=== PATIENT | male | born 1960 | race Caucasian/White ===

== ENCOUNTER 2021-09-09 14:21 | Emergency (ER) | payer MEDICARE, OTHER ==
[2021-09-09 14:46] VITALS: RESP 18; TEMP 97.5
--- NOTE | 2021-09-09 15:21 | ED ---
Abdominal Pain HPI - General Chief Complaint: Abdominal Pain Stated Complaint: High Blood Pressure Time Seen by Provider: 09/09/21 14:56 Source: patient Mode of arrival: ambulatory - History of Present Illness Initial Comments: Patient is a 60-year-old male presenting with chief complaint of abdominal bloating. Today the patient presented to urgent care for abdominal bloating and pain that he has been experiencing for the last 2 months, at urgent care his blood pressure reading was high and they advised him to present to the ER for further management. Patient states that his abdominal pain is diffuse and feels like a tightening of the abdomen. Patient has been on levofloxacin and Protonix for his symptoms which has not been helpful. He denies diarrhea or constipation, he states he has one small formed bowel movement every day. Patient admits to smoking one pack of cigarettes a day. Patient denies history of hypertension, diabetes, heart failure, peripheral vascular disease, states that he does not regularly go to the doctor. He denies change of pain with ingestion of food or drink or position or exertion. No nausea, vomiting. No chest pain or shortness of breath. No fever or chills. No palpitations, weakness, headache, vision or hearing changes, numbness, tingling, hemoptysis, hematemesis, hematochezia, melena, hematuria, dysuria, urgency, frequency, flank pain, back pain or pain between the shoulder blades. - Related Data Home Medications Medication Instructions Recorded Confirmed Pantoprazole Sodium [Protonix] 40 mg PO DAILY 09/09/21 09/09/21 Allergies Allergy/AdvReac Type Severity Reaction Status Date / Time No Known Allergies Allergy Verified 09/09/21 15:40 Review of Systems ROS Statement: Those systems with pertinent positive or pertinent negative responses have been documented in the HPI. ROS Other: All systems not noted in ROS Statement are negative. Past Medical History Past Medical History: Hypertension History of Any Multi-Drug Resistant Organisms: None Reported Past Surgical History: Orthopedic Surgery Additional Past Surgical History / Comment(s): lung. wrist, leg Past Psychological History: No Psychological Hx Reported Smoking Status: Current every day smoker Past Alcohol Use History: Occasional Past Drug Use History: None Reported General Exam Limitations: no limitations General appearance: alert, in no apparent distress Head exam: Present: atraumatic, normocephalic, normal inspection Eye exam: Present: normal appearance. Absent: scleral icterus ENT exam: Present: normal exam, mucous membranes moist Neck exam: Present: normal inspection Respiratory exam: Present: normal lung sounds bilaterally. Absent: respiratory distress, wheezes, rales, rhonchi, stridor Cardiovascular Exam: Present: regular rate, normal rhythm, normal heart sounds. Absent: systolic murmur, diastolic murmur, rubs, gallop, clicks GI/Abdominal exam: Present: soft, distended, hyperactive bowel sounds. Absent: tenderness, guarding, rebound, rigid Extremities exam: Present: normal inspection Back exam: Present: normal inspection Neurological exam: Present: alert, oriented X3, CN II-XII intact Psychiatric exam: Present: normal affect, normal mood Skin exam: Present: warm, dry, intact, normal color. Absent: rash Course Vital Signs 09/09/21 09/09/21 09/09/21 14:39 16:06 17:12 Temperature 97.5 F L Pulse Rate 90 87 93 Respiratory 18 18 18 Rate Blood Pressure 219/133 163/102 168/99 O2 Sat by Pulse 99 98 99 Oximetry Medical Decision Making - Medical Decision Making Patient is a 60-year-old male presenting with chief complaint of abdominal distention. Patient states that for the last 2 months he has been having abdominal bloating and distention. Patient denies constipation, nausea, vomiting. On presentation he is hypertensive at 219/133. On exam abdomen is distended, is not rigid or tender. Normal bowel sounds in all 4 quadrants. Lab work and UA is unremarkable. EKG shows sinus rhythm with rate of 91 and no acute changes. Acute abdominal series is remarkable for fecal loading of the colon and nodule of the left upper lung. BP recheck it has been gradually coming down, most recent reading is 168/99. I educated the patient on the findings. Advised treatment with MiraLAX and Metamucil. Follow-up with primary care regarding high blood pressure, pulmonary nodule, and abdominal bloating. Report back to ER if any worsening symptoms. Educated the patient on return parameters and answered all questions. Patient conveyed verbal understanding and agreed to the plan. I discussed this case with my attending Dr. Max. - Lab Data Result diagrams: 09/09/21 15:17 09/09/21 15:17 Lab Results 09/09/21 09/09/21 09/09/21 Range/Units 15:17 15:17 15:17 WBC 9.9 (3.8-10.6) k/uL RBC 5.28 (4.30-5.90) m/uL Hgb 17.7 H (13.0-17.5) gm/dL Hct 53.4 H (39.0-53.0) % MCV 101.2 H (80.0-100.0) fL MCH 33.6 (25.0-35.0) pg MCHC 33.2 (31.0-37.0) g/dL RDW 11.6 (11.5-15.5) % Plt Count 193 (150-450) k/uL MPV 8.2 Neutrophils % 71 % Lymphocytes % 19 % Monocytes % 6 % Eosinophils % 1 % Basophils % 1 % Neutrophils # 7.0 (1.3-7.7) k/uL Lymphocytes # 1.9 (1.0-4.8) k/uL Monocytes # 0.6 (0-1.0) k/uL Eosinophils # 0.1 (0-0.7) k/uL Basophils # 0.1 (0-0.2) k/uL PT 10.9 (9.0-12.0) sec INR 1.0 (<1.2) APTT 27.0 (22.0-30.0) sec Sodium (137-145) mmol/L Potassium (3.5-5.1) mmol/L Chloride (98-107) mmol/L Carbon Dioxide (22-30) mmol/L Anion Gap mmol/L BUN (9-20) mg/dL Creatinine (0.66-1.25) mg/dL Est GFR (CKD-EPI)AfAm (>60 ml/min/1.73 sqM) Est GFR (CKD-EPI)NonAf (>60 ml/min/1.73 sqM) Glucose (74-99) mg/dL Plasma Lactic Acid Gregorio (0.7-2.0) mmol/L Calcium (8.4-10.2) mg/dL Total Bilirubin (0.2-1.3) mg/dL AST (17-59) U/L ALT (4-49) U/L Alkaline Phosphatase (38-126) U/L Troponin I (0.000-0.034) ng/mL Total Protein (6.3-8.2) g/dL Albumin (3.5-5.0) g/dL Amylase (30-110) U/L Lipase (23-300) U/L Urine Color Colorless Urine Appearance Clear (Clear) Urine pH 6.0 (5.0-8.0) Ur Specific [place] 1.002 (1.001-1.035) Urine Protein Negative (Negative) Urine Glucose (UA) Negative (Negative) Urine Ketones Negative (Negative) Urine Blood Negative (Negative) Urine Nitrite Negative (Negative) Urine Bilirubin Negative (Negative) Urine Urobilinogen <2.0 (<2.0) mg/dL Ur Leukocyte Esterase Negative (Negative) 09/09/21 09/09/21 09/09/21 Range/Units 15:17 15:17 15:17 WBC (3.8-10.6) k/uL RBC (4.30-5.90) m/uL Hgb (13.0-17.5) gm/dL Hct (39.0-53.0) % MCV (80.0-100.0) fL MCH (25.0-35.0) pg MCHC (31.0-37.0) g/dL RDW (11.5-15.5) % Plt Count (150-450) k/uL MPV Neutrophils % % Lymphocytes % % Monocytes % % Eosinophils % % Basophils % % Neutrophils # (1.3-7.7) k/uL Lymphocytes # (1.0-4.8) k/uL Monocytes # (0-1.0) k/uL Eosinophils # (0-0.7) k/uL Basophils # (0-0.2) k/uL PT (9.0-12.0) sec INR (<1.2) APTT (22.0-30.0) sec Sodium 134 L (137-145) mmol/L Potassium 3.9 (3.5-5.1) mmol/L Chloride 97 L (98-107) mmol/L Carbon Dioxide 22 (22-30) mmol/L Anion Gap 15 mmol/L BUN 4 L (9-20) mg/dL Creatinine 0.50 L (0.66-1.25) mg/dL Est GFR (CKD-EPI)AfAm >90 (>60 ml/min/1.73 sqM) Est GFR (CKD-EPI)NonAf >90 (>60 ml/min/1.73 sqM) Glucose 93 (74-99) mg/dL Plasma Lactic Acid Gregorio 1.8 (0.7-2.0) mmol/L Calcium 9.0 (8.4-10.2) mg/dL Total Bilirubin 0.6 (0.2-1.3) mg/dL AST 57 (17-59) U/L ALT 59 H (4-49) U/L Alkaline Phosphatase 82 (38-126) U/L Troponin I <0.012 (0.000-0.034) ng/mL Total Protein 9.2 H (6.3-8.2) g/dL Albumin 5.0 (3.5-5.0) g/dL Amylase 88 (30-110) U/L Lipase 69 (23-300) U/L Urine Color Urine Appearance (Clear) Urine pH (5.0-8.0) Ur Specific [place] (1.001-1.035) Urine Protein (Negative) Urine Glucose (UA) (Negative) Urine Ketones (Negative) Urine Blood (Negative) Urine Nitrite (Negative) Urine Bilirubin (Negative) Urine Urobilinogen (<2.0) mg/dL Ur Leukocyte Esterase (Negative) - EKG Data EKG shows normal: sinus rhythm, axis, intervals, QRS complexes Rate: normal Disposition Clinical Impression: Constipation Disposition: HOME SELF-CARE Condition: Good Instructions (If sedation given, give patient instructions): Constipation (DC), High Fiber Diet (ED) Additional Instructions: Follow-up with your primary care provider regarding high blood pressure and nodule on left lung seen on x-ray today in 1-2 days. You may take over the counter MiraLAX and Metamucil to help promote healthy bowel movements. Stay well hydrated and eat a diet high in fiber. Report back to ER with any worsening symptoms, including but not limited to vomiting, chest pain, shortness of breath, vision changes, intractable headache. Is patient prescribed a controlled substance at d/c from ED?: No Referrals: Jeancarlos Garcia MD [Primary Care Provider] - 1-2 days Time of Disposition: 16:57
[2021-09-09 15:32] LABS: Basophils # (A) 0.1 k/uL (0-0.2); Basophils % (A) 1 %; Eosinophils # (A) 0.1 k/uL (0-0.7); Eosinophils % (A) 1 %; HCT 53.4 % (39.0-53.0); HGB 17.7 gm/dL (13.0-17.5); Lymphocytes # (A) 1.9 k/uL (1.0-4.8); Lymphocytes % (A) 19 %; MCH 33.6 pg (25.0-35.0); MCHC 33.2 g/dL (31.0-37.0); MCV 101.2 fL (80.0-100.0); Mean Platelet Volume 8.2; Monocytes # (A) 0.6 k/uL (0-1.0); Monocytes % (A) 6 %; Neutrophils % (A) 71 %; Platelet Count 193 k/uL (150-450); RBC 5.28 m/uL (4.30-5.90); RDW 11.6 % (11.5-15.5); WBC 9.9 k/uL (3.8-10.6)
[2021-09-09 15:41] LABS: ALT 59 U/L (4-49); AST 57 U/L (17-59); African American GFR (CKD) >90 (>60 ml/min/1.73 sqM); Alkaline Phosphatase 82 U/L (38-126); Amylase 88 U/L (30-110); Anion Gap 15 mmol/L; Blood Urea Nitrogen 4 mg/dL (9-20); Carbon Dioxide 22 mmol/L (22-30); Chloride 97 mmol/L (98-107); Glucose 93 mg/dL (74-99); Lipase 69 U/L (23-300); Non-African American GFR(CKD) >90 (>60 ml/min/1.73 sqM); Potassium 3.9 mmol/L (3.5-5.1); Sodium 134 mmol/L (137-145); Total Bilirubin 0.6 mg/dL (0.2-1.3); Total Protein 9.2 g/dL (6.3-8.2)
[2021-09-09] MEDS ORDERED: SODIUM CHLORIDE 0.9% 1,000 ML IV ONE (15:49)
[2021-09-09 15:55] LABS: Prothrombin Time 10.9 sec (9.0-12.0)
[2021-09-09 15:58] LABS: Appearance,Urine Clear (Clear); Bilirubin,Urine Negative (Negative); Blood,Urine Negative (Negative); Color,Urine Colorless; Glucose,Urine (UA) Negative (Negative); Ketones,Urine Negative (Negative); Leukocyte Esterase,Urine Negative (Negative); Nitrite,Urine Negative (Negative); Protein,Urine Negative (Negative); Specific Gravity,Urine 1.002 (1.001-1.035); Urobilinogen,Urine <2.0 mg/dL (<2.0)
--- NOTE | 2021-09-09 16:00 | XR ---
EXAMINATION TYPE: XR abdomen acute w cx DATE OF EXAM: 09/09/2021 COMPARISON: X-ray dated 08/30/2009 HISTORY: Abdominal pain TECHNIQUE: Supine, upright, and left side down lateral decubitus views of the abdomen are obtained. FINDINGS: 10 mm nodular opacity superimposed on the left upper lung zone which could represent a tiny nodule, n ot appreciated previously. Follow-up x-ray versus elective CT assessment can be considered. Suspected COPD changes. Unremarkable lungs otherwise. No sizable pleural effusion or definite pneumothorax. No cardiomegaly. Chronic fracture of the right clavicle. No free air under the diaphragm. No multiple air-fluid levels or signs of acute high-grade small dean l obstruction. Moderate fecal loading of the colon. Arterial atherosclerotic calcifications. IMPRESSION: 1. No acute pulmonary or abdominal abnormality identified. 2. Suspected moderate fecal loading of the colon. 3. Questionable nodule superimposed on the left upper lung zone as described above, for follow-up x-r ay in 6 weeks versus further elective CT assessment. Other findings as described above.
[2021-09-09 17:14] VITALS: BP 168/99; PULSE 93
== END 2021-09-09 17:14 | disposition home or self-care (01) ==
LOC: EC 14:21
DX: K59.00 Constipation, unspecified (principal); F17.210 Nicotine dependence, cigarettes, uncomplicated; I10 Essential (primary) hypertension
CPT/HCPCS: 36415; 74022; 80053; 81003; 82150; 83605; 83690; 84484; 85025; 85610; 85730; 93005; 96360; 99284

== ENCOUNTER 2022-02-12 07:48 | Emergency (ER) | payer MEDICARE, OTHER ==
[2022-02-12 07:59] VITALS: BP 168/91; PULSE 92; RESP 16; TEMP 97.5
--- NOTE | 2022-02-12 08:18 | ED ---
General Adult HPI - General Chief complaint: Abdominal Pain Stated complaint: Abd pain Time Seen by Provider: 02/12/22 08:00 Source: patient, RN notes reviewed, old records reviewed Mode of arrival: ambulatory Limitations: no limitations - History of Present Illness Initial comments: This is a 61-year-old male who presents emergency Department complaining of flank pain intermittently over the last 6 months. Patient states about 5 months ago with a colonoscopy and they did not find a cause for the pain. Patient states for a while is gone away but it is back again for the last month and he said mostly on the left side. Patient denies any dysuria hematuria urinary frequency. Patient denies any fever chills or cough. Patient denies any nausea vomiting or diarrhea. Patient states chest pain or difficulty breathing. Patient states there is no point specific area of tenderness. Patient denies any swelling or rashes. Patient denies any weight gain or weight loss. - Related Data Home Medications Medication Instructions Recorded Confirmed No Known Home Medications 02/12/22 02/12/22 Allergies Allergy/AdvReac Type Severity Reaction Status Date / Time No Known Allergies Allergy Verified 02/12/22 10:37 Review of Systems ROS Statement: Those systems with pertinent positive or pertinent negative responses have been documented in the HPI. ROS Other: All systems not noted in ROS Statement are negative. Past Medical History Past Medical History: Hypertension History of Any Multi-Drug Resistant Organisms: None Reported Past Surgical History: Orthopedic Surgery Additional Past Surgical History / Comment(s): lung. wrist, leg Past Psychological History: No Psychological Hx Reported Smoking Status: Current every day smoker Past Alcohol Use History: Occasional Past Drug Use History: None Reported General Exam - General Exam Comments Initial Comments: GENERAL: Patient is well-developed and well-nourished. Patient is nontoxic and well- hydrated and is in mild distress. ENT: Neck is soft and supple. No significant lymphadenopathy is noted. Oropharynx is clear. Moist mucous membranes. Neck has full range of motion without eliciting any pain. EYES: The sclera were anicteric and conjunctiva were pink and moist. Extraocular movements were intact and pupils were equal round and reactive to light. Eyel ids were unremarkable. PULMONARY: Unlabored respirations. Good breath sounds bilaterally. No audible rales rhonchi or wheezing was noted. CARDIOVASCULAR: There is a regular rate and rhythm without any murmurs gallops or rubs. ABDOMEN: Soft and nontender with normal bowel sounds. No specific area of tenderness on palpation at all. SKIN: Skin is clear with no lesions or rashes and otherwise unremarkable. NEUROLOGIC: Patient is alert and oriented x3. Cranial nerves II through XII are grossly intact. Motor and sensory are also intact. Normal speech, volume and content. Symmetrical smile. MUSCULOSKELETAL: Normal extremities with adequate strength and full range of motion. LYMPHATICS: No significant lymphadenopathy is noted PSYCHIATRIC: Normal psychiatric evaluation. Limitations: no limitations Course Vital Signs 02/12/22 07:56 Temperature 97.5 F L Pulse Rate 92 Respiratory 16 Rate Blood Pressure 168/91 O2 Sat by Pulse 100 Oximetry Medical Decision Making - Medical Decision Making CT shows stenosis of the SMA. I spoke with he wanted the patient admitted and have a vascular consult. I went and spoke with the patient he stated he would stay and I ordered him a nicotine patch and a little Ativan because he is very anxious. When I left the room shortly thereafter patient put his clothes on and told nursing he wanted to leave AMA. Patient understood the risks and stated he would follow-up on his own. - Lab Data Result diagrams: 02/12/22 08:17 02/12/22 08:17 Lab Results 02/12/22 02/12/22 02/12/22 Range/Units 08:17 08:17 08:17 WBC 8.9 (3.8-10.6) k/uL RBC 4.79 (4.30-5.90) m/uL Hgb 15.9 (13.0-17.5) gm/dL Hct 48.8 (39.0-53.0) % MCV 101.8 H (80.0-100.0) fL MCH 33.1 (25.0-35.0) pg MCHC 32.5 (31.0-37.0) g/dL RDW 11.7 (11.5-15.5) % Plt Count 213 (150-450) k/uL MPV 7.8 Neutrophils % 58 % Lymphocytes % 29 % Monocytes % 7 % Eosinophils % 2 % Basophils % 1 % Neutrophils # 5.2 (1.3-7.7) k/uL Lymphocytes # 2.6 (1.0-4.8) k/uL Monocytes # 0.6 (0-1.0) k/uL Eosinophils # 0.2 (0-0.7) k/uL Basophils # 0.1 (0-0.2) k/uL Sodium 135 L (137-145) mmol/L Potassium 4.5 (3.5-5.1) mmol/L Chloride 99 (98-107) mmol/L Carbon Dioxide 24 (22-30) mmol/L Anion Gap 12 mmol/L BUN 7 L (9-20) mg/dL Creatinine 0.51 L (0.66-1.25) mg/dL Est GFR (CKD-EPI)AfAm >90 (>60 ml/min/1.73 sqM) Est GFR (CKD-EPI)NonAf >90 (>60 ml/min/1.73 sqM) Glucose 88 (74-99) mg/dL Plasma Lactic Acid Gregorio 1.5 (0.7-2.0) mmol/L Calcium 9.3 (8.4-10.2) mg/dL Total Bilirubin 0.8 (0.2-1.3) mg/dL AST 47 (17-59) U/L ALT 50 H (4-49) U/L Alkaline Phosphatase 65 (38-126) U/L Total Protein 8.1 (6.3-8.2) g/dL Albumin 4.9 (3.5-5.0) g/dL Amylase 81 (30-110) U/L Lipase 62 (23-300) U/L Urine Color Urine Appearance (Clear) Urine pH (5.0-8.0) Ur Specific [place] (1.001-1.035) Urine Protein (Negative) Urine Glucose (UA) (Negative) Urine Ketones (Negative) Urine Blood (Negative) Urine Nitrite (Negative) Urine Bilirubin (Negative) Urine Urobilinogen (<2.0) mg/dL Ur Leukocyte Esterase (Negative) 02/12/22 Range/Units 08:17 WBC (3.8-10.6) k/uL RBC (4.30-5.90) m/uL Hgb (13.0-17.5) gm/dL Hct (39.0-53.0) % MCV (80.0-100.0) fL MCH (25.0-35.0) pg MCHC (31.0-37.0) g/dL RDW (11.5-15.5) % Plt Count (150-450) k/uL MPV Neutrophils % % Lymphocytes % % Monocytes % % Eosinophils % % Basophils % % Neutrophils # (1.3-7.7) k/uL Lymphocytes # (1.0-4.8) k/uL Monocytes # (0-1.0) k/uL Eosinophils # (0-0.7) k/uL Basophils # (0-0.2) k/uL Sodium (137-145) mmol/L Potassium (3.5-5.1) mmol/L Chloride (98-107) mmol/L Carbon Dioxide (22-30) mmol/L Anion Gap mmol/L BUN (9-20) mg/dL Creatinine (0.66-1.25) mg/dL Est GFR (CKD-EPI)AfAm (>60 ml/min/1.73 sqM) Est GFR (CKD-EPI)NonAf (>60 ml/min/1.73 sqM) Glucose (74-99) mg/dL Plasma Lactic Acid Gregorio (0.7-2.0) mmol/L Calcium (8.4-10.2) mg/dL Total Bilirubin (0.2-1.3) mg/dL AST (17-59) U/L ALT (4-49) U/L Alkaline Phosphatase (38-126) U/L Total Protein (6.3-8.2) g/dL Albumin (3.5-5.0) g/dL Amylase (30-110) U/L Lipase (23-300) U/L Urine Color Light Yellow Urine Appearance Clear (Clear) Urine pH 7.0 (5.0-8.0) Ur Specific [place] 1.003 (1.001-1.035) Urine Protein Negative (Negative) Urine Glucose (UA) Negative (Negative) Urine Ketones Negative (Negative) Urine Blood Negative (Negative) Urine Nitrite Negative (Negative) Urine Bilirubin Negative (Negative) Urine Urobilinogen <2.0 (<2.0) mg/dL Ur Leukocyte Esterase Negative (Negative) Disposition Clinical Impression: Abdominal pain, Superior mesenteric artery stenosis Disposition: Left Against Medical Advice Instructions (If sedation given, give patient instructions): Abdominal Pain (ED) Referrals: Jeancarlos Garcia MD [Primary Care Provider] - 1-2 days Time of Disposition: 11:09
[2022-02-12 08:42] LABS: Appearance,Urine Clear (Clear); Basophils # (A) 0.1 k/uL (0-0.2); Basophils % (A) 1 %; Bilirubin,Urine Negative (Negative); Blood,Urine Negative (Negative); Color,Urine Light Yellow; Eosinophils # (A) 0.2 k/uL (0-0.7); Eosinophils % (A) 2 %; Glucose,Urine (UA) Negative (Negative); HCT 48.8 % (39.0-53.0); HGB 15.9 gm/dL (13.0-17.5); Ketones,Urine Negative (Negative); Leukocyte Esterase,Urine Negative (Negative); Lymphocytes # (A) 2.6 k/uL (1.0-4.8); Lymphocytes % (A) 29 %; MCH 33.1 pg (25.0-35.0); MCHC 32.5 g/dL (31.0-37.0); MCV 101.8 fL (80.0-100.0); Mean Platelet Volume 7.8; Monocytes # (A) 0.6 k/uL (0-1.0); Monocytes % (A) 7 %; Neutrophils # (A) 5.2 k/uL (1.3-7.7); Neutrophils % (A) 58 %; Nitrite,Urine Negative (Negative); Platelet Count 213 k/uL (150-450); Protein,Urine Negative (Negative); RBC 4.79 m/uL (4.30-5.90); RDW 11.7 % (11.5-15.5); Specific Gravity,Urine 1.003 (1.001-1.035); Urobilinogen,Urine <2.0 mg/dL (<2.0); WBC 8.9 k/uL (3.8-10.6)
[2022-02-12 08:52] LABS: ALT 50 U/L (4-49); African American GFR (CKD) >90 (>60 ml/min/1.73 sqM); Albumin 4.9 g/dL (3.5-5.0); Amylase 81 U/L (30-110); Anion Gap 12 mmol/L; Blood Urea Nitrogen 7 mg/dL (9-20); Calcium 9.3 mg/dL (8.4-10.2); Carbon Dioxide 24 mmol/L (22-30); Chloride 99 mmol/L (98-107); Glucose 88 mg/dL (74-99); Lipase 62 U/L (23-300); Non-African American GFR(CKD) >90 (>60 ml/min/1.73 sqM); Sodium 135 mmol/L (137-145); Total Bilirubin 0.8 mg/dL (0.2-1.3); Total Protein 8.1 g/dL (6.3-8.2)
[2022-02-12 08:55] LABS: Potassium 4.5 mmol/L (3.5-5.1)
[2022-02-12 08:56] LABS: AST 47 U/L (17-59); Alkaline Phosphatase 65 U/L (38-126)
[2022-02-12] MEDS ORDERED: DIPHENOX-ATROP STARTER PACK 8 TAB BTL PO STA (09:35)
[2022-02-12] MEDS ORDERED: ONDANSETRON 4 MG ODT STARTER PACK 2 TAB BTL PO STA (09:35)
--- NOTE | 2022-02-12 09:50 | CT ---
EXAMINATION TYPE: CT abdomen pelvis w con DATE OF EXAM: 02/12/2022 COMPARISON: NONE HISTORY: 61-year-old male Left sided abdominal pain x months, worsening TECHNIQUE: Contiguous axial scanning of the abdomen and pelvis following administration of 100 ml Iso surjit 300 IV contrast. Delayed images through the kidneys and coronal/sagittal reconstructions perform ed. CT DLP: 621.5 mGycm Automated exposure control for dose reduction was used. FINDINGS: The heart is normal size without pericardial effusion. Minimal strandy atelectasis periphery of the r ight lung. No pleural effusion. No focal liver lesion or biliary ductal dilatation. Portal venous system is patent. Gallbladder, adrenal glands, right kidney, spleen, and pancreas within normal limits. Tiny 5 mm cortical cyst anterior left kidney. Symmetric uptake and excretion of contrast from both ki dneys. No dilated small bowel, free fluid, or free air. No mesenteric or retroperitoneal lymphadenopathy. Left-sided colonic diverticulosis, greatest in the proximal sigmoid colon where there is mild wall th ickening and some pericolonic strandy density, for example, axial image 39, 43, and 33. Prominent fluid within some distal small bowel loops and also within the right colon. Appendix not di scretely visualized. There is moderate atherosclerotic calcifications within the infrarenal abdominal aorta. Segmental sev ere stenoses left common iliac artery, right external iliac artery, and bilateral internal iliac. Seg mental moderate stenoses right common iliac artery. In addition, there is a severe focal stenosis, po ssible subtotal occlusion at the origin of the SMA. Bladder is urine distended. Prostate gland measures 3.9 cm wide. No abnormal fluid collection in the pelvis or pelvic lymphadenopathy. Bones: Hypertrophic facet arthropathy mid to lower lumbar spine. No osseous destructive process. Ther e is a partially lumbarized S1 vertebral body. IMPRESSION: 1. LIQUID STOOL WITHIN DISTAL SMALL BOWEL AND THROUGHOUT THE RIGHT SIDE OF THE COLON. CORRELATE FOR I LEUS OR DIARRHEAL STATE/ENTERITIS. 2. LEFT-SIDED COLONIC DIVERTICULOSIS, GREATEST IN THE SIGMOID COLON. THERE IS WALL THICKENING ALONG T HE PROXIMAL SIGMOID WITH SOME PERICOLONIC STRANDY DENSITY, EITHER PROMINENT PERICOLONIC VESSELS VERSU S MILD INFLAMMATION. CORRELATE FOR POSSIBLE MILD ACUTE DIVERTICULITIS. DIRECT VISUALIZATION AFTER ANY POTENTIAL TREATMENT. 3. NOTE PROMINENT ATHEROSCLEROTIC CHANGES INFRARENAL ABDOMINAL AORTA AND BILATERAL ILIAC ARTERIES. TH ERE IS ALSO A SEVERE STENOSIS/SUBTOTAL OCCLUSION SMA ORIGIN. SEGMENTS OF SEVERE STENOSES IN THE ILIAC ARTERIES MENTIONED ABOVE. CONSIDER VASCULAR SURGERY REFERRAL.
[2022-02-12] MEDS ORDERED: NICOTINE 21MG/24HR PATCH TRANSDERM STA (10:52)
[2022-02-12] MEDS ORDERED: LORazepam 2 MG/ML INJ IV STA (10:53)
== END 2022-02-12 11:10 | disposition left against medical advice (07) ==
LOC: EC 07:48
DX: I77.1 Stricture of artery (principal); I10 Essential (primary) hypertension; F17.200 Nicotine dependence, unspecified, uncomplicated; Z53.29 Procedure and treatment not carried out because of patient's decision for other reasons
CPT/HCPCS: 99284 ×2; 36415; 80053; 82150; 83605; 83690; 85025; 81003; 74177; Q9967

== ENCOUNTER → 2023-05-19 | Outpatient (CLI) | payer MEDICARE, OTHER ==
--- NOTE | 2023-05-27 00:53 | CT ---
EXAMINATION TYPE: CT abdomen wo con CT DLP: 341 mGycm, Automated exposure control for dose reduction was used. DATE OF EXAM: 05/19/2023 4:19 PM COMPARISON: CT abdomen pelvis with contrast 02/12/2022 CLINICAL INDICATION:Male, 62 years old with history of R10.84 ABD PAIN; abdominal pain no contrast of any kind. TECHNIQUE: Axial CT of the abdomen performed without contrast. Sagittal and coronal reformats were c reated on a separate workstation. Contrast used: mL of , (none if empty) Oral contrast used: without Oral Contrast (none if empty) FINDINGS: Exam is limited without contrast. LOWER CHEST: No acute abnormality. Small linear opacity with a slightly nodular appearance towards th e pleural surface in the right lower lobe, most suggestive of scarring or atelectasis. No pleural or pericardial effusion. Heart is not enlarged. Partially seen densities suggesting coronary artery calc ifications and/or stents. No pericardial effusion. ABDOMEN LIVER: Upper normal in size measuring 15.2 cm in length. Normal attenuation. GALLBLADDER AND BILE DUCTS: Contracted gallbladder without evidence of calcified stones. No biliary d uctal dilatation is suggested. PANCREAS: Unremarkable. SPLEEN: Unremarkable. ADRENAL GLANDS: Unremarkable. KIDNEYS AND URETERS: Kidneys appear symmetric without contour deforming lesion. No evidence of renal calculi or hydronephrosis. There are some apparent vascular calcifications/phleboliths present but no clear-cut ureteral calculi. STOMACH AND BOWEL: Stomach contains heterogeneous material, likely from recent meal, and there is a s mall ovoid radiodensity in the distal lumen which is probably a medication tablet. Visualized small b owel loops do not appear significantly dilated to suggest obstruction. The colon is incompletely seen , and the appendix is not visualized but no focal inflammatory process is seen. Multiple colonic dive rticula are seen distally in the descending and sigmoid region primarily, without evidence of inflamm ation to suggest diverticulitis. PERITONEUM/RETROPERITONEUM: No evidence of pneumoperitoneum or free fluid. VASCULATURE: Moderate to severe atherosclerotic calcifications are present throughout the abdominal a mireya and its branches. No evidence of aortic aneurysm. Mild atherosclerotic disease at the origin of the celiac artery. There is calcified atherosclerotic disease plus a stent present in the proximal s uperior mesenteric artery. Calcifications at the level of the renal arteries with probably at least m ild stenosis. No aneurysm of the infrarenal aorta is seen. Moderate calcifications throughout the vis ualized iliac arteries. LYMPH NODES: No gross evidence for lymphadenopathy. SOFT TISSUE/ABDOMINAL WALL: Mild body wall edema. MUSCULOSKELETAL: No acute osseous abnormalities. Mild to moderate degenerative changes of the visuali zed lower thoracic and lumbar spine with no compression fractures and relatively preserved disc space s throughout the majority of the spine. There is however moderate degenerative disc disease with endp late osteophytes as well as moderate facet arthrosis at L5-S1, causing at least moderate bilateral ne ural foraminal stenoses, and mild to moderate canal stenosis. Mild S-shaped lower thoracic and lumbar curvature. IMPRESSION: 1. No clearly acute abnormality in the abdomen to explain the patient's symptoms, in the limits of u nenhanced technique. 2. Colonic diverticulosis without evidence of diverticulitis. 3. No evidence of renal calculi or hydronephrosis. 4. Extensive arterial vascular calcifications, plus stent in the proximal SMA.
== END | disposition home or self-care (01) ==
LOC: RADCTMAIN 15:43
PROVIDERS: ATTEND Family Medicine
DX: K57.30 Diverticulosis of large intestine without perforation or abscess without bleeding (principal); I70.209 Unspecified atherosclerosis of native arteries of extremities, unspecified extremity; Z95.828 Presence of other vascular implants and grafts
CPT/HCPCS: 74150

== ENCOUNTER → 2024-05-02 | Outpatient (CLI) | payer MEDICARE, OTHER ==
--- NOTE | 2024-05-05 22:04 | CT ---
"EXAMINATION TYPE: CT chest wo con DATE OF EXAM: 05/02/2024 8:53 AM COMPARISON: Patient's abnormal chest x-ray is unavailable at this location for comparison. CLINICAL INDICATION: Male, 63 years old with history of R93.89 abnormal CXR, abnormal CXR TECHNIQUE: Axial images were obtained at 5 mm thick sections. Reconstructed images are reviewed on [employer] computer in the coronal plane. Contrast used: mL of , (none if empty) Oral contrast used: (none if empty) CT DLP: 194.1 mGycm, Automated exposure control for dose reduction was used. FINDINGS: Portion of the thyroid visualized is normal. There is a 6.9 x 4.7 cm lobular mass in the right infrahilar region. This extends into the right midd le lobe appears to have some cavitation. No enlarged mediastinal or hilar adenopathy is evident. The ascending aorta diameter at the level o f the main pulmonary artery is 3.7 cm. The main pulmonary artery diameter at the bifurcation is 2.6 cm. Marked Coronary artery calcification is present. Limited CT sections are obtained through the upper abdomen. Abdomen is essentially unremarkable. IMPRESSION: 1. Large right middle lobe mass with mild cavitation. Additional workup for neoplasm recommended. A Yellow level critical message alert has been initiated for Tani Goncalves MD via the [facility] | Critical Results System on 05/05/2024 10:02 PM. This message alert has been sent to Mariama Cardona MD via the preferences provided by the clinician for the receipt of Radiology Critical Findings. Message ID [id number]. [facility], , 05/05/2024 10:02 PM"
== END | disposition home or self-care (01) ==
LOC: RADCTMAIN 08:38
PROVIDERS: ATTEND Family Medicine
DX: R91.8 Other nonspecific abnormal finding of lung field (principal); R93.89 Abnormal findings on diagnostic imaging of other specified body structures
CPT/HCPCS: 71250

== ENCOUNTER → 2024-06-02 | Outpatient (CLI) | payer MEDICARE, OTHER ==
--- NOTE | 2024-06-02 16:13 | PE ---
EXAMINATION TYPE: PET CT fusion skull to thigh DATE OF EXAM: 06/02/2024 COMPARISON: Most recent prior chest CT May 02, 2024 HISTORY: Lung mass, abnormal CT. TECHNIQUE: Following the intravenous administration of 12.77 mCi of F-18 FDG, whole body images are performed from the skull base to the midthigh. Images are reviewed on the computer in the coronal, a xial, and sagittal planes. Reconstructed rotating images are created on independent workstation and reviewed on the computer. A localization and attenuation correction CT is performed in conjunction with the PET scan. Blood glucose level equals 110. SCAN: Initial Scan FINDINGS: SKULL BASE AND NECK: No areas of suspicious abnormal hypermetabolic uptake. CHEST, MEDIASTINUM, AND HILAR REGION: There is persistent anterior right infrahilar mass with some fernandez rrounding groundglass opacity and consolidations measuring approximately 8.1 x 5.8 cm current study i mage 104. There is some abnormal hypermetabolic uptake along the periphery. Max SUV is 9.18 on axial image 102 along the anterior lateral aspect. Central necrosis is felt present. Some internal tiny foc i of air redemonstrated. There is approximate 7 mm hypermetabolic right upper lobe pulmonary nodule on axial image 85 with wit h abnormal hypermetabolic uptake, max SUV is 3.95. There is additional abnormal hypermetabolic subcarinal mass or lymph node axial image 100 with Max FERNANDEZ V of 9.17 measuring approximately 2.0 x 1.1 cm. There is hypermetabolic uptake in the 10 mm right tracheobronchial lymph node axial image 90, max FERNANDEZ V is 4.01. No abnormal hypermetabolic uptake in the left lung. ABDOMEN AND PELVIS: Normal excretion is seen. No adrenal masses. No abnormal hypermetabolic uptake. OSSEOUS STRUCTURES: No abnormal hypermetabolic uptake. OTHER CT: Moderate to severe three-vessel coronary artery calcifications and/or stents is redemonstra tunde. There is new stent in the SMA. Distal colonic diverticula are redemonstrated. There is disc spac e narrowing with vacuum disc phenomenon at the lumbosacral junction. IMPRESSION: Malignancy suspected in the anterior right infrahilar mass. Additional suspicious right u pper lobe subcentimeter hypermetabolic nodule. Abnormal adenopathy in the thorax is seen including fernandez bcarinal involvement. [facility], , 06/02/2024 4:11 PM
== END | disposition home or self-care (01) ==
LOC: RADPETMAIN 10:55
PROVIDERS: ATTEND Internal Medicine
DX: R91.8 Other nonspecific abnormal finding of lung field (principal)
CPT/HCPCS: 78815; A9552

== ENCOUNTER → 2024-06-16 | Day surgery (SDC) | payer MEDICARE, OTHER ==
[~2024-06-16] MED LIST: LACTATED RINGERS 1,000 ML IV SCH
[2024-06-16 11:56] VITALS: BP 155/92; PULSE 90; RESP 17; TEMP 97.3
[2024-06-16] MEDS: LACTATED RINGERS 1,000 ML IV SCH (12:00)
[2024-06-16] MEDS: IV FLUID CONTINUATION 1,000 ML IV ONE (12:00)
== END ==
LOC: ORWHC2ENDO 11:30
PROVIDERS: ATTEND Internal Medicine
DX: Z53.8 Procedure and treatment not carried out for other reasons (principal); R91.8 Other nonspecific abnormal finding of lung field; I10 Essential (primary) hypertension; I25.10 Atherosclerotic heart disease of native coronary artery without angina pectoris; J44.9 Chronic obstructive pulmonary disease, unspecified; F17.210 Nicotine dependence, cigarettes, uncomplicated; Z79.899 Other long term (current) drug therapy

== ENCOUNTER → 2024-06-19 | Outpatient (CLI) | payer MEDICARE, OTHER ==
--- NOTE | 2024-06-20 08:37 | MR ---
INDICATION: Patient age:Male; 63 years old; Reason for study: C34.81; PHH. COMPARISON: PET CT 06/02/2024. TECHNIQUE: Multi planar, multi sequence imaging was performed through the brain. The patient was then given 5.5 cc of Gadobutrol intravenously and multi planar, T1 fat-saturation images were obtained. FINDINGS: The frederick-white junctions, ventricular system, basal cisterns appear unremarkable. Mild diffuse cerebr al volume loss. Diffusion-weighted imaging shows no evidence of restricted diffusion to suggest acute /subacute infarct. Intracranial arterial flow voids are maintained. Midline structures show no abnorm ality. Patchy areas of high T2/FLAIR signal intensity are seen within the periventricular and subcort ical white matter. Additional regions within the willie. The susceptibility weighted images do not reve al any evidence for micro-hemorrhage. After administration of gadolinium, no abnormal enhancement is seen. The bone marrow signal is within normal limits. Bilateral aphakia. Mild mucosal thickening in the inf erior bilateral maxillary sinuses. Inferior superficial preauricular 9 mm T1/T2/FLAIR hyperintense le victorino (series 401, image 3). No enhancement identified. IMPRESSION: 1. No evidence of intracranial mass, acute/subacute infarct, or abnormal enhancement to suggest metas tasis. 2. Nonspecific white matter changes, likely related to small vessel ischemic disease. 3. Right superficial preauricular 9 mm nonenhancing cystic lesion. May represent a sebaceous cyst shai tierra etiologies. Correlate clinically. [facility], , 06/20/2024 8:35 AM
== END | disposition home or self-care (01) ==
LOC: RADMRIMAIN 21:00
PROVIDERS: ATTEND Internal Medicine Hematology & Oncology
DX: C34.81 Malignant neoplasm of overlapping sites of right bronchus and lung (principal); E78.5 Hyperlipidemia, unspecified; I10 Essential (primary) hypertension; R90.82 White matter disease, unspecified; H27.03 Aphakia, bilateral
CPT/HCPCS: 70553; A9585

== ENCOUNTER 2024-12-15 11:10 | Emergency (ER) | payer MEDICARE, OTHER ==
[2024-12-15 11:34] VITALS: TEMP 97.8
--- NOTE | 2024-12-15 12:12 | ED ---
General Adult HPI - General Chief complaint: Urogenital Stated complaint: Urogenital Time Seen by Provider: 12/15/24 11:35 Source: patient, family (friend, Soniya), RN notes reviewed, old records reviewed Mode of arrival: ambulatory Limitations: no limitations - History of Present Illness Initial comments: 63-year-old male presenting to the ER for evaluation of difficulty with urination. Patient's friend, at bedside, is aiding in HPI. She reports patient has been experiencing lower abdominal comfort for the past couple of years. He states over the past couple of months he is now having difficulty with urination. He states it is difficult for him to start urinating and he frequently has to press on his lower abdomen to begin urinating. He denies any dysuria, hematuria or weak urine stream. He reports he does not feel like he fully empties his bladder after urination. He does admit to a 15 pound unintentional weight loss over the past couple of weeks. He does report he was 135 pounds months ago and is now 120 pounds. Reports normal appetite. Denies night sweats. He denies any fevers, chills, nausea, vomiting, back or flank pain. Denies a history of kidney stones. Friend reports patient is currently waiting to be scheduled for a lung mass biopsy and she has reached out to Dr. Goncalves regarding this. She reports patient has been scheduled for biopsy of this but biopsy was unable to be completed for various reasons. Patient also recently has followed up with for stenting to right lower extremity in venous evaluation. Patient is a smoker. Friend also reports patient has been off balance for the past couple of months. He has been evaluated at [facility] and was told he was dehydrated. He denies any dizziness, lightheadedness, unilateral weakness, slurred speech or facial droop. He states he feels weak when walking. Patient denies any recent falls, saddle paresthesias, bowel incontinence/retention, history of IV drug abuse or fevers. - Related Data Home Medications Medication Instructions Recorded Confirmed Atorvastatin [Lipitor] 20 mg PO DAILY 06/13/24 06/23/24 Budesonide/Glycopyr/Formoterol 2 inh INHALATION BID PRN 06/13/24 06/23/24 [Breztri Aerosphere Inhaler] Clopidogrel [Plavix] 75 mg PO DAILY 06/13/24 06/23/24 HYDROcodone/APAP 7.5-325MG [[place] 1 tab PO Q6H PRN 06/13/24 06/23/24 7.5-325] Pantoprazole [Protonix] 40 mg PO DAILY 06/13/24 06/23/24 amLODIPine [Norvasc] 5 mg PO DAILY 06/13/24 06/23/24 Allergies Allergy/AdvReac Type Severity Reaction Status Date / Time No Known Allergies Allergy Verified 12/15/24 11:34 Review of Systems ROS Statement: Those systems with pertinent positive or pertinent negative responses have been documented in the HPI. ROS Other: All systems not noted in ROS Statement are negative. Past Medical History Past Medical History: Hypertension Additional Past Medical History / Comment(s): collpased lung 40 yrs ago History of Any Multi-Drug Resistant Organisms: None Reported Past Surgical History: Orthopedic Surgery Additional Past Surgical History / Comment(s): janie wrist fx repaired, leg rt index finger amputated Past Anesthesia/Blood Transfusion Reactions: No Reported Reaction Past Psychological History: No Psychological Hx Reported Smoking Status: Current every day smoker Past Alcohol Use History: Daily Past Drug Use History: None Reported - Past Family History Father Family Medical History: Cancer General Exam Limitations: no limitations General appearance: alert, in no apparent distress Neck exam: Present: full ROM, other (Left neck there is a nontender circular lesion noted. No overlying erythema or drainage.) Respiratory exam: Present: decreased breath sounds (Throughout all lung [place]) Cardiovascular Exam: Present: regular rate, normal rhythm, normal heart sounds. Absent: systolic murmur, diastolic murmur, rubs, gallop, clicks GI/Abdominal exam: Present: soft, tenderness (Mild lower abdomen), normal bowel sounds Extremities exam: Present: normal inspection, full ROM, normal capillary refill. Absent: tenderness, pedal edema, joint swelling, calf tenderness Neurological exam: Present: alert, oriented X3, CN II-XII intact Skin exam: Present: warm, dry, intact, normal color. Absent: rash Course Vital Signs 12/15/24 12/15/24 11:29 14:00 Temperature 97.8 F Pulse Rate 64 90 Respiratory 22 18 Rate Blood Pressure 127/80 121/79 O2 Sat by Pulse 96 96 Oximetry Medical Decision Making - Medical Decision Making Was pt. sent in by a medical professional or institution (INGRID Munoz, [facility], urgent care, hospital, or penitentiary...) When possible be specific @ -No Did you speak to anyone other than the patient for history (EMS, parent, family, police, friend...)? What history was obtained from this source @ -Patient's friend, at bedside, aiding in HPI and past medical history Did you review nursing and triage notes (agree or disagree)? Why? @ -I reviewed and agree with nursing and triage notes Were old charts reviewed (outside hosp., previous admission, EMS record, old EKG, old radiological studies, urgent care reports/EKG's, penitentiary records)? Report findings @ -I reviewed PET scan report completed on 06 02 24. Findings concerning of m alignancy in the anterior right infrahilar mass. Additional suspicious right upper lobe subcentimeter hypermetabolic nodule. Abnormal adenopathy to the thorax is seen including subcarinal involvement. Differential Diagnosis (chest pain, altered mental status, abdominal pain women, abdominal pain men, vaginal bleeding, weakness, fever, dyspnea, syncope, headache, dizziness, GI bleed, back pain, seizure, CVA, palpatations, mental health, musculoskeletal)? @ -UTI, cauda equina syndrome, malignancy, BPH, urinary retention, kidney stone... This list is not meant to be all-inclusive EKG interpreted by me (3pts min.). @None done X-rays interpreted by me (1pt min.). @ -None done CT interpreted by me (1pt min.). @ -CT abd/pelvis showing no CT evidence of acute intra-abdominal/pelvic process. No discrete evidence of metastasis. Colonic diverticulosis without evidence of acute diverticulitis. Partial visualization of consolidation within the right middle lobe related to known right hilar mass. U/S interpreted by me (1pt. min.). @ -None done What testing was considered but not performed or refused? (CT, X-rays, U/S, labs)? Why? @ -None What meds were considered but not given or refused? Why? @ -None Did you discuss the management of the patient with other professionals (professionals i.e. INGRID Munoz, [employer], lab, RT, psych nurse, social worker masters, assistant warehouse manager, teacher, staff combat information center officer, case maker)? Give summary @ -Case discussed with case management, Jessica. She scheduled appointments for patient's follow-up with pulmonology and oncology. She did reach out to urology office they stated they will contact patient after reviewing ER findings. Was smoking cessation discussed for >3mins.? @ -I discussed smoking cessation for greater than 3 minutes. The risk of smoking were discussed with the patient including but not limited to risks of cancer, stroke, coronary artery disease and COPD. Also discussed with patient were multiple methods of quitting smoking. Lastly we discussed the financial cost of smoking. Was critical care preformed (if so, how long)? @ -No Were there social determinants of health that impacted care today? How? (Homelessness, low income, unemployed, alcoholism, drug addiction, transportation, low edu. Level, literacy, decrease access to med. care, skilled nursing, rehab)? @ -No Was there de-escalation of care discussed even if they declined (Discuss DNR or withdrawal of care, Hospice)? DNR status @ -No What co-morbidities impacted this encounter? (DM, HTN, Smoking, COPD, CAD, Cancer, CVA, ARF, Chemo, Hep., AIDS, mental health diagnosis, sleep apnea, morb id obesity)? @ -Right lung mass concerning of malignancy, hypertension Was patient admitted / discharged? Hospital course, mention meds given and route, prescriptions, significant lab abnormalities, going to OR and other pertinent info. @ -Discharge. 63-year-old male presented to the ER for evaluation of difficulty with urination. Upon arrival vital signs stable. Patient with no signs of acute distress nontoxic-appearing. Examination remarkable for lower abdominal "pressure" to palpation with normal bowel sounds. There is no rebound or guarding. Patient denying any back pain, saddle paresthesias, bowel incontinence/retention, fevers or history of IV drug abuse. Postvoid bladder scan 200 mL for which Escalante catheter was placed. Throughout emergency department stay there was greater than 1500ml pale urine output from catheter. Upon chart review it appears patient is currently being evaluated by pulmonology and oncology for a right lung mass concerning of malignancy. Given this with new onset difficulty with urination laboratory studies and CT abdomen pelvis were obtained. Laboratory shows remarkable for WBC 10.6. Sodium 129. BUN is 7 creatinine 0.36 GFR is greater than 90. Lipase 31. Urinalysis is unremarkable. CT abdomen pelvis negative for acute intra-abdominal/pelvic process with no distinct evidence of metastasis. Patient provided with IV fluid bolus in the emergency department. Upon reevaluation, findings discussed with patient and friend at bedside. All questions were answered. I did offer admission to patient for further evaluation of right lung mass with pulmonology and oncology on consult given difficulty and compliance with outpatient follow-u p. Patient refused stating he would like to go home. I did discuss case with case maker, Jessica, she scheduled pulmonology and oncology appointments for patient. She did contact urology who stated they will contact patient for follow-up. Strict return parameters discussed. Patient discharged in stable condition with Escalante catheter in place. Catheter care provided to patient by RN. Patient verbally expressed understanding and agreement with care plan. Case discussed with ED attending, Dr. Ochoa. Undiagnosed new problem with uncertain prognosis? @ -No Drug Therapy requiring intensive monitoring for toxicity (Heparin, Nitro, Insulin, Cardizem)? @ -No Were any procedures done? @ -No Diagnosis/symptom? @ -Urinary retention/ Right lung mass rule out malignancy Acute, or Chronic, or Acute on Chronic? @ -Acute Uncomplicated (without systemic symptoms) or Complicated (systemic symptoms)? @ -Complicated Side effects of treatment? @ -No Exacerbation, Progression, or Severe Exacerbation? @ -No Poses a threat to life or bodily function? How? (Chest pain, [place], [place], pneumonia, PE, COPD, DKA, ARF, appy, cholecystitis, CVA, Diverticulitis, Homicidal, Suicidal, threat to staff... and all critical care pts) @ -[Yes, urinary retention can lead to renal failure. Malignancy cannot be ruled out. - Lab Data Result diagrams: 12/15/24 12:15 12/15/24 12:15 Lab Results 12/15/24 12/15/24 12/15/24 Range/Units 12:15 12:15 12:15 WBC 10.67 H (4.50-10.00) 10*3/uL RBC 4.46 (4.40-5.60) 10*6/uL Hgb 14.4 (13.0-17.0) g/dL Hct 41.7 (39.6-50.0) % MCV 93.5 (80.0-97.0) fL MCH 32.3 H (27.0-32.0) pg MCHC 34.5 (32.0-37.0) g/dL Plt Count 230 (140-440) 10*3/uL MPV 9.7 (9.5-12.2) fL Immature Gran % (Auto) 0.6 % Neutrophils % 62.7 % Lymphocytes % 26.3 % Monocytes % 9.1 % Eosinophils % 1.1 % Basophils % 0.2 % Immature Gran # 0.06 H (0.00-0.04) 10*3/uL Neutrophils # 6.69 (1.80-7.70) 10*3/uL Lymphocytes # 2.81 (0.90-5.00) 10*3/uL Monocytes # 0.97 (0.20-1.00) 10*3/uL Eosinophils # 0.12 (0.04-0.35) 10*3/uL Basophils # 0.02 (0.00-0.10) 10*3/uL Sodium 129 L (137-145) mmol/L Potassium 4.4 (3.5-5.1) mmol/L Chloride 95 L (98-107) mmol/L Carbon Dioxide 20 L (22-30) mmol/L Anion Gap 14 mmol/L BUN 7 L (9-20) mg/dL Creatinine 0.36 L (0.66-1.25) mg/dL Est GFR (CKD-EPI)AfAm >90 (>60 ml/min/1.73 sqM) Est GFR (CKD-EPI)NonAf >90 (>60 ml/min/1.73 sqM) Glucose 87 (74-99) mg/dL Plasma Lactic Acid Gregorio (0.7-2.0) mmol/L Calcium 9.5 (8.4-10.2) mg/dL Total Bilirubin 0.6 (0.2-1.3) mg/dL AST 32 (17-59) U/L ALT 22 (4-49) U/L Alkaline Phosphatase 103 (38-126) U/L Total Protein 7.7 (6.3-8.2) g/dL Albumin 4.3 (3.5-5.0) g/dL Lipase (23-300) U/L Urine Color Colorless Urine Appearance Clear (Clear) Urine pH 6.0 (5.0-8.0) Ur Specific [place] 1.005 (1.001-1.035) Urine Protein Negative (Negative) Urine Glucose (UA) Negative (Negative) Urine Ketones Negative (Negative) Urine Blood Negative (Negative) Urine Nitrite Negative (Negative) Urine Bilirubin Negative (Negative) Urine Urobilinogen <2.0 (<2.0) mg/dL Ur Leukocyte Esterase Negative (Negative) 12/15/24 12/15/24 Range/Units 12:15 12:15 WBC (4.50-10.00) 10*3/uL RBC (4.40-5.60) 10*6/uL Hgb (13.0-17.0) g/dL Hct (39.6-50.0) % MCV (80.0-97.0) fL MCH (27.0-32.0) pg MCHC (32.0-37.0) g/dL Plt Count (140-440) 10*3/uL MPV (9.5-12.2) fL Immature Gran % (Auto) % Neutrophils % % Lymphocytes % % Monocytes % % Eosinophils % % Basophils % % Immature Gran # (0.00-0.04) 10*3/uL Neutrophils # (1.80-7.70) 10*3/uL Lymphocytes # (0.90-5.00) 10*3/uL Monocytes # (0.20-1.00) 10*3/uL Eosinophils # (0.04-0.35) 10*3/uL Basophils # (0.00-0.10) 10*3/uL Sodium (137-145) mmol/L Potassium (3.5-5.1) mmol/L Chloride (98-107) mmol/L Carbon Dioxide (22-30) mmol/L Anion Gap mmol/L BUN (9-20) mg/dL Creatinine (0.66-1.25) mg/dL Est GFR (CKD-EPI)AfAm (>60 ml/min/1.73 sqM) Est GFR (CKD-EPI)NonAf (>60 ml/min/1.73 sqM) Glucose (74-99) mg/dL Plasma Lactic Acid Gregorio 1.8 (0.7-2.0) mmol/L Calcium (8.4-10.2) mg/dL Total Bilirubin (0.2-1.3) mg/dL AST (17-59) U/L ALT (4-49) U/L Alkaline Phosphatase (38-126) U/L Total Protein (6.3-8.2) g/dL Albumin (3.5-5.0) g/dL Lipase 31 (23-300) U/L Urine Color Urine Appearance (Clear) Urine pH (5.0-8.0) Ur Specific [place] (1.001-1.035) Urine Protein (Negative) Urine Glucose (UA) (Negative) Urine Ketones (Negative) Urine Blood (Negative) Urine Nitrite (Negative) Urine Bilirubin (Negative) Urine Urobilinogen (<2.0) mg/dL Ur Leukocyte Esterase (Negative) - Radiology Data Radiology results: report reviewed, image reviewed Disposition Clinical Impression: Urinary retention Disposition: HOME SELF-CARE Condition: Stable Instructions (If sedation given, give patient instructions): Urinary Retention in Men (ED), Escalante Catheter Placement and Care (ED), How to Change a Catheter Drainage Bag (DC) Additional Instructions: Follow-up with pulmonology, oncology and PCP as scheduled. Urology will contact you after reviewing emergency department information. Return to the ER for any new or worsened concerns Is patient prescribed a controlled substance at d/c from ED?: No Referrals: Rosa Isela Paulino MD [STAFF PHYSICIAN] - 12/19/24 1:00 pm aTni Goncalves MD [Primary Care Provider] - 12/18/24 11:50 am Devang Tang MD [STAFF PHYSICIAN] - 1-2 days (Office will be calling your contacts regarding an appointment. Usually catheters stay in about two weeks. ) Time of Disposition: 15:05
[2024-12-15] MEDS: SODIUM CHLORIDE 0.9% 1,000 ML IV ONE (12:20)
[2024-12-15 12:50] LABS: Basophils # (A) 0.02 10*3/uL (0.00-0.10); Basophils % (A) 0.2 %; Eosinophils # (A) 0.12 10*3/uL (0.04-0.35); Eosinophils % (A) 1.1 %; HCT 41.7 % (39.6-50.0); HGB 14.4 g/dL (13.0-17.0); Lymphocytes # (A) 2.81 10*3/uL (0.90-5.00); Lymphocytes % (A) 26.3 %; MCH 32.3 pg (27.0-32.0); MCHC 34.5 g/dL (32.0-37.0); MCV 93.5 fL (80.0-97.0); Monocytes # (A) 0.97 10*3/uL (0.20-1.00); Monocytes % (A) 9.1 %; Neutrophils # (A) 6.69 10*3/uL (1.80-7.70); Neutrophils % (A) 62.7 %; Platelet Count 230 10*3/uL (140-440); RBC 4.46 10*6/uL (4.40-5.60); RDW 12.4 % (11.5-14.5); WBC 10.67 10*3/uL (4.50-10.00)
[2024-12-15 12:53] LABS: Bilirubin,Urine Negative (Negative); Blood,Urine Negative (Negative); Color,Urine Colorless; Glucose,Urine (UA) Negative (Negative); Ketones,Urine Negative (Negative); Leukocyte Esterase,Urine Negative (Negative); Nitrite,Urine Negative (Negative); PH, Urine 6.0 (5.0-8.0); Protein,Urine Negative (Negative); Specific Gravity,Urine 1.005 (1.001-1.035); Urobilinogen,Urine <2.0 mg/dL (<2.0)
[2024-12-15 13:02] LABS: ALT 22 U/L (4-49); AST 32 U/L (17-59); African American GFR (CKD) >90 (>60 ml/min/1.73 sqM); Albumin 4.3 g/dL (3.5-5.0); Alkaline Phosphatase 103 U/L (38-126); Anion Gap 14 mmol/L; Blood Urea Nitrogen 7 mg/dL (9-20); Calcium 9.5 mg/dL (8.4-10.2); Carbon Dioxide 20 mmol/L (22-30); Chloride 95 mmol/L (98-107); Glucose 87 mg/dL (74-99); Non-African American GFR(CKD) >90 (>60 ml/min/1.73 sqM); Potassium 4.4 mmol/L (3.5-5.1); Sodium 129 mmol/L (137-145); Total Protein 7.7 g/dL (6.3-8.2)
[2024-12-15] MEDS: LIDOCAINE 2% URO-JET JELLY 5 ML KIT URETHRAL ONE (13:18)
--- NOTE | 2024-12-15 13:42 | CT ---
EXAMINATION TYPE: CT abdomen pelvis w con CT DLP: 579.1 mGycm, Automated exposure control for dose reduction was used. DATE OF EXAM: 12/15/2024 1:31 PM COMPARISON: CT abdomen pelvis 07/14/2024, CT abdomen 05/19/2023, PET CT 06/02/2024 CLINICAL INDICATION:Male, 63 years old with history of difficulty with urination; difficulty with [place] TECHNIQUE: Standard CT of the abdomen and pelvis following the administration of 100 cc of Isovue 3 00 IV contrast material. Coronal and sagittal reformats were performed. FINDINGS: LOWER CHEST: Partial visualization of right middle lobe consolidation related to known right hilar ma ss. Otherwise the visualized lung bases are clear. ABDOMEN LIVER: Unremarkable GALLBLADDER AND BILE DUCTS: Unremarkable. PANCREAS: Unremarkable. SPLEEN: Unremarkable. ADRENAL GLANDS: Unremarkable. KIDNEYS AND URETERS: No evidence of hydronephrosis or renal calculus. The kidneys enhance symmetrical ly. Contrast is demonstrated within both collecting systems and proximal ureters on the delayed phase . PELVIS BLADDER: Nondistended with Escalante catheter in place. Nondependent gas from catheter placement. REPRODUCTIVE: Unremarkable. ABDOMEN & PELVIS STOMACH AND BOWEL: Stomach and duodenum are unremarkable. Distal colonic diverticulosis without defin itive evidence for acute diverticulitis. No focal bowel wall thickening and stranding inflammatory ch anges. No evidence of bowel obstruction. PERITONEUM: No evidence of pneumoperitoneum or free fluid. VASCULATURE: Moderate to severe atherosclerotic calcifications are present throughout the abdominal a mireya and its branches. No evidence of aortic aneurysm. Celiac axis stent identified. Moderate stenosi s involving the left common iliac artery secondary to calcified plaque. MUSCULOSKELETAL: No acute osseous abnormalities. Degenerative changes at L5-S1. LYMPH NODES: No evidence for lymphadenopathy. SOFT TISSUE/ABDOMINAL WALL: Unremarkable IMPRESSION: 1. No CT evidence for acute abdominal/pelvic process. No distinct evidence for metastasis. 2. Colonic diverticulosis without evidence for acute diverticulitis. 3. Partial visualization of consolidation within the right middle lobe related to known right hilar m ass. This is highly concerning for malignancy on prior PET/CT. [facility], , 12/15/2024 1:40 PM
[2024-12-15 14:25] VITALS: BP 121/79; PULSE 90; RESP 18
== END 2024-12-15 15:30 | disposition home or self-care (01) ==
LOC: EC 11:10
DX: R33.9 Retention of urine, unspecified (principal); I10 Essential (primary) hypertension; Z85.118 Personal history of other malignant neoplasm of bronchus and lung; F17.200 Nicotine dependence, unspecified, uncomplicated
CPT/HCPCS: 99284; 96360; 51702; 36415; 80053; 83605; 83690; 85025; 81003; 74177; Q9967